=== PATIENT | female | born 1990 | race Caucasian/White ===

== ENCOUNTER 2016-11-29 16:09 | Emergency (ER) | payer OTHER ==
[~2016-11-29] VITALS: Ht 162.6 cm; Wt 89.5 kg
[2016-11-29 17:25] VITALS: BP 106/92
[2016-11-29 19:14] LABS: HEMATOCRIT 41.7 % (36-48); HEMOGLOBIN 13.4 g/dL (12.0-16.0); MEAN CORPUSCULAR HEMOGLOBIN 25 pg (27-31); MEAN CORPUSCULAR HGB CONC 32 g/dL (33-37); MEAN CORPUSCULAR VOLUME 79 fL (80-94); PLATELET COUNT (AUTO) 478 K/uL (140-450); RED BLOOD CELL COUNT(AUTO) 5.27 MIL/uL (4.20-5.40); RED CELL DISTRIBUTION WIDTH 14.3 % (11.6-13.7); WHITE BLOOD COUNT (AUTO) 24.1 K/uL (4.8-10.8)
[2016-11-29 19:28] LABS: BILIRUBIN,URINE 2+ (NEGATIVE); BLOOD, URINE 2+ (NEGATIVE); COLOR,URINE YELLOW (YELLOW); LEUKOCYTE ESTERASE ,URINE NEGATIVE (NEGATIVE); NITRITE, URINE NEGATIVE (NEGATIVE); PROTEIN,URINE 1+ (NEGATIVE); UGLUCOSE NEGATIVE (NEGATIVE); UROBILINOGEN,URINE 0.2 EU/dL (0.2 - 1)
[2016-11-29 19:30] LABS: APPEARANCE,URINE SLIGHTLY HAZY (CLEAR)
[2016-11-29 19:30] LABS: INR 1.1 (0.8-1.2); PROTHROMBIN TIME 11.4 secs (10.8-13.4)
[2016-11-29 19:33] LABS: BAND % (MANUAL) 3 % (0-8); LYMPHOCYTES % (MANUAL) 8 % (20-46); NEUTROPHILS % (MANUAL) 80 (43-65)
[2016-11-29 19:34] LABS: ALBUMIN 3.7 g/dL (3.4-5.0); ANION GAP 19.4 (8-16); CALCIUM 9.1 mg/dL (8.5-10.1); CARBON DIOXIDE 23.5 mmol/L (21-32); CREATININE 0.9 mg/dL (0.6-1.3); EOSINOPHILS % (MANUAL) 1 % (0-4); METAMYELOCYTES % 1 % (0-0); MONOCYTES % (MANUAL) 3 % (5-12); MYELOCYTES % 4 % (0-0); PLATELET ESTIMATE ADEQUATE; TOTAL BILIRUBIN 0.4 mg/dL (0.0-1.0); TOTAL PROTEIN, SERUM 9.4 g/dL (6.4-8.2)
[2016-11-29 19:37] LABS: BACTERIA,URINE FEW /HPF (None Seen); ICTOTEST NEGATIVE (NEGATIVE); MUCUS,URINE 4+ /LPF (None Seen); WBC,URINE 0-5 /HPF (0-5)
[2016-11-29 19:40] LABS: POTASSIUM 2.9 mmol/L (3.5-5.1)
--- NOTE | 2016-11-29 19:41 | NUR ---
ER MD DR HAN NOTIFTED FOR K+ 2.9-HE STS " OK FOR PT TO WAIT IN ER LOBBY FOR BED.
--- NOTE | 2016-11-29 21:30 | NUR ---
PT TAKEN TO BED 3
--- NOTE | 2016-11-29 21:36 | NUR ---
26Y F BIB FAMILY C/O LLQ PAIN X LAST NIGHT BUT NOTED BLOODY STOOLS X3 WKS FATIGUE, MALAISE, HEADACHE 7/10 PAIN ; PT DENIES ANY SOB/CP AT THE MOMENT;PT AAOX 4. HX---UC, RX----
--- NOTE | 2016-11-29 21:59 | NUR ---
Dr. Pozo evaluating patient at bedside.
[2016-11-29] MEDS ORDERED: NACL 0.9% 1,000 ML IV ONE (22:09)
[2016-11-29] MEDS ORDERED: METOCLOPRAMIDE 10 MG/2 ML INJ VIAL IVP ONE (22:10)
[2016-11-29] MEDS ORDERED: diphenhydrAMINE 50 MG/ML VIAL IVP ONE (22:10)
[2016-11-29] MEDS ORDERED: POTASSIUM CHLORIDE 10 MEQ TABER PO ONE (23:05)
--- NOTE | 2016-11-29 23:10 | NUR ---
IV removed, catheter intact and site benign. Applied folded 4x4 gauze and tape to stop bleeding.
--- NOTE | 2016-11-29 23:25 | NUR ---
Patient discharged with v/s stable. Written and verbal after care instructions given and explained. Patient alert, oriented and verbalized understanding of instructions. Ambulatory with steady gait. All questions addressed prior to discharge. ID band removed. Patient advised to follow up with PMD. Rx of MOTRIN 800MG AND NORCO 5/325, PREDNISONE 20MG, AND ZOFRAN 8MG given. Patient educated on indication of medication including possible reaction and side effects. Opportunity to ask questions provided and answered.
[2016-11-29 23:26] VITALS: BP 116/84
== END 2016-11-29 23:25 | disposition home or self-care (01) ==
LOC: MED 16:09
DX: K51.90 Ulcerative colitis, unspecified, without complications (principal); E87.6 Hypokalemia
CPT/HCPCS: 36415; 80053; 81001; 81025; 82150; 83690; 84703; 85025; 85610; 96374; 96375; 99284; J1200; J2765; J7030

== ENCOUNTER 2018-08-15 08:54 | Day surgery (SDC) | payer OTHER ==
[~2018-08-15] VITALS: Ht 160 cm; Wt 74.4 kg
[2018-08-15] MEDS ORDERED: [UNRECOGNIZED DRUG - CODE] PO (09:50)
[2018-08-15] MEDS ORDERED: BEN10 PO (09:50)
[2018-08-15] MEDS ORDERED: MIDAZOLAM 2 MG/2 ML VIAL ONE (09:53)
[2018-08-15] MEDS ORDERED: fentaNYL 0.05 MG/ML VIAL ONE (09:53)
[2018-08-15] MEDS ORDERED: LIDOCAINE 2% 100 MG/5 ML UJET TP ONE (09:54)
[2018-08-15] MEDS ORDERED: fentaNYL 0.05 MG/ML VIAL IVP ONE (10:50)
== END 2018-08-15 12:35 | disposition home or self-care (01) ==
LOC: MTU 08:54 → MDS 08:54
PROVIDERS: ATTEND Internal Medicine Gastroenterology
DX: K51.90 Ulcerative colitis, unspecified, without complications (principal); Z79.899 Other long term (current) drug therapy; Z90.49 Acquired absence of other specified parts of digestive tract
CPT/HCPCS: 45378; 81025; J3010; 45330; J2250